=== PATIENT | male | born 1985 | race Caucasian/White ===

== ENCOUNTER 2019-05-20 20:11 | Emergency (ER) | payer BC ==
[~2019-05-20] VITALS: Ht 182.9 cm; Wt 125.2 kg
[2019-05-20 20:17] VITALS: BP 112/79
--- NOTE | 2019-05-20 20:20 | NUR ---
PT TAKEN TO BED 5
--- NOTE | 2019-05-20 20:21 | NUR ---
C/O LOW BACK PAIN UPON WAKEING THIS AM. DENEIS TRAUMA OR INJURY. NO REDNESS OR SWELLING TO SITE. 8/10 INTERMITENT SHARP PAIN PROVOKED BY MOVEMENT. TOOK FLEXRIL 10MG IBUPROFEN 800 MG 2-3 HOURS IT SUPPORT SPECIALIST BUT NON EFFECTIVE. +NAUSEA, -V/D. NO FEVER PRESENT. NO DEFORMITY TO SPINE. WILL CONTINUE TO MONITOR. [facility] GASTRIC BYPASS X 1 1/2 YRS AGO, TORN ROTATOR CUFF [id number] AGO RX FLEXRIL DENIES ALLERGIES
--- NOTE | 2019-05-20 21:16 | NUR ---
Dr. Mehta examining patient.
[2019-05-20] MEDS ORDERED: KETOROLAC 30 MG/ML VIAL IM ONE (21:45)
[2019-05-20] MEDS ORDERED: DIAZEPAM 5 MG TAB PO ONE (21:45)
--- NOTE | 2019-05-20 22:39 | NUR ---
PT SITTING IN BED NO SIGNS OF DISTRESS. STATES PAIN HAS DECREASED. MOTHER AND AT BEDSIDE.
[2019-05-20 23:27] VITALS: BP 108/76
== END 2019-05-20 23:27 | disposition home or self-care (01) ==
LOC: MED 20:11
DX: S39.012A Strain of muscle, fascia and tendon of lower back, initial encounter (principal); Z98.890 Other specified postprocedural states; X58.XXXA Exposure to other specified factors, initial encounter; Y93.89 Activity, other specified; Y92.89 Other specified places as the place of occurrence of the external cause; Y99.8 Other external cause status
CPT/HCPCS: 96372; 99283; J1885